=== PATIENT | male | born 1985 | race Caucasian/White ===

== ENCOUNTER 2017-05-18 17:04 | Emergency (ER) | payer BC ==
[~2017-05-18] VITALS: Ht 185.4 cm; Wt 119.8 kg
[2017-05-18 17:10] VITALS: TEMP 36.7; Ht 185.4 cm; Wt 119.8 kg
[2017-05-18] MEDS ORDERED: RABIES VACCINE (IMOVAX) HUMAN DIPL CELL 2.5 INTER.UNIT/ML SYR IM. ONE (17:30)
[2017-05-18] MEDS ORDERED: RABIES IMMUNE GLOBULIN (HUMAN) 150 INTER.UNIT/ML 2 ML VIAL IM. ONE (17:30)
[2017-05-18 19:05] VITALS: BP 120/81; PULSE 87; O2SAT 99
--- NOTE | 2017-05-18 19:22 | EMERGENCY ROOM VISIT NOTE ---
History First contact with patient: 17:16 Chief Complaint: OTHER COMPLAINT Stated Complaint: BAT ATTACK History of Present Illness The patient is a 31 year old male who presents to the Emergency Room for evaluation after the patient and spouse were awakened in the bedroom last night with their dog barking in the hallway leading to the bedroom. The bedroom door was open. They present to the emergency department for further discussion of need for the rabies prophylaxis series. Review of Systems 6 system review was performed and was negative except for pertinent positives and negatives as indicated in history of present illness Past Medical/Surgical History Medical Problems: (1) No significant past medical history Surgical Problems: (1) No history of previous surgery Family History Unremarkable Social History Smoking Status: Never Smoker Alcohol Use: none Marital Status: Housing Status: lives with family Occupation Status: employed Current/Historical Medications No Active Prescriptions or Reported Meds Physical Exam Vital Signs Date Time Temp Pulse Resp B/P (MAP) Pulse Ox O2 Delivery O2 Flow Rate FiO2 05/18/17 19:05 87 18 120/81 99 05/18/17 17:10 36.7 88 18 125/84 97 Physical Exam CONSTITUTIONAL: Healthy and well nourished. Alert and oriented X 3 with positive affect. HEENT: Normocephalic, atraumatic. Pupils equal, round and reactive. NECK: Full active range of motion without discomfort. INTEGUMENTARY: No rash or other significant dermatologic conditions noted. NEUROLOGIC: No focal neurologic deficits noted. Medical Decision & Procedures Medications Administered Medications (Trade) Dose Ordered Sig/Pati Route Start Time Stop Time Status Last Admin Dose Admin Rabies Vaccine Human Diploid Cell (Imovax Rabies) 2.5 interunit ONCE ONCE IM. 05/18/17 17:30 05/18/17 17:31 DC 05/18/17 18:14 2.5 INTERUNIT Rabies Immune Globulin (Imogam Rabies Inj) 2,400 interunit ONCE ONCE IM. 05/18/17 17:30 05/18/17 17:31 DC 05/18/17 18:15 2,400 INTERUNIT ED Course Patient history and physical exam were performed. Nurse's notes were reviewed. Vital signs were reviewed and were normal. Because the patient was awakened with a possibility of a bat in their room, I did explain that CDC guidelines recommend the postexposure prophylaxis series. The patient was in agreement. The patient was administered Imovax and HRIG 20 units per kilogram without any adverse reactions. The patient will return on days 3, 7 and 14 for subsequent immunizations, sooner with any other adverse reactions or concerns. The patient was happy with plan of care, and denied any pain at the time of discharge. Medical Decision Blood Pressure Screening Patient's blood pressure: Normal blood pressure Impression Primary Impression: Need for prophylactic vaccination against rabies Departure Information Prescriptions No Active Prescriptions or Reported Meds Referrals No Doctor, Assigned (PCP) Patient Instructions [facility]
== END 2017-05-18 19:07 | disposition home or self-care (01) ==
LOC: C.EDB 17:05 → C.EDD 19:07
DX: Z20.3 Contact with and (suspected) exposure to rabies (principal); Z23 Encounter for immunization

== ENCOUNTER 2017-05-21 19:26 | Emergency (ER) | payer BC ==
[~2017-05-21] VITALS: Ht 185.4 cm; Wt 120.2 kg
[2017-05-21 19:35] VITALS: TEMP 36.7; Ht 185.4 cm; Wt 120.2 kg
--- NOTE | 2017-05-21 19:44 | EMERGENCY ROOM VISIT NOTE ---
ED Visit Note First contact with patient: 19:38 CHIEF COMPLAINT: Need second rabies vaccine HISTORY OF PRESENT ILLNESS: This 31-year-old male presents the ER stating he needs his second rabies vaccine. The patient was initially seen here 3 days ago after there was a bat in their house. The patient denies any problems with her prior vaccine. REVIEW OF SYSTEMS: 6 system review was performed and was negative unless stated otherwise in history of present illness. PMH: The patient is healthy; there is no significant medical or surgical history. SOCIAL HISTORY: Patient lives with his significant other PHYSICAL EXAM: Vital Signs: Were reviewed Reviewed Nurse's notes. GENERAL: 31- year-old white male appears in no acute distress. MENTAL Status: Alert and oriented 3. SKIN: No visible bites noted. EMERGENCY DEPARTMENT COURSE: The patient was given Imovax. The patient was discharged home in stable condition. DIAGNOSIS: Post exposure rabies prophylaxis DISCHARGE INSTRUCTIONS: Return to the ER as previously directed for the remainder of the vaccine series. Current/Historical Medications No Active Prescriptions or Reported Meds Allergies Coded Allergies: No Known Allergies (Unverified , 05/18/17) Vital Signs Date Time Temp Pulse Resp B/P (MAP) Pulse Ox O2 Delivery O2 Flow Rate FiO2 05/21/17 19:35 36.7 77 16 129/72 97 Room Air Departure Information Prescriptions No Active Prescriptions or Reported Meds Referrals No Doctor, Assigned (PCP) Patient Instructions [facility]
[2017-05-21] MEDS ORDERED: RABIES VACCINE (IMOVAX) HUMAN DIPL CELL 2.5 INTER.UNIT/ML SYR IM. ONE (19:45)
[2017-05-21 20:13] VITALS: BP 119/91; PULSE 74; O2SAT 98
== END 2017-05-21 20:13 | disposition home or self-care (01) ==
LOC: C.EDB 19:27 → C.EDD 20:13
DX: Z23 Encounter for immunization (principal); Z20.3 Contact with and (suspected) exposure to rabies

== ENCOUNTER 2017-05-25 12:39 | Emergency (ER) | payer BC ==
[~2017-05-25] VITALS: Ht 185.4 cm; Wt 118.9 kg
[2017-05-25 16:14] VITALS: BP 116/76; PULSE 68; TEMP 36.4; O2SAT 97; Ht 185.4 cm; Wt 118.9 kg
[2017-05-25] MEDS ORDERED: RABIES VACCINE (IMOVAX) HUMAN DIPL CELL 2.5 INTER.UNIT/ML SYR IM. ONE (16:30)
--- NOTE | 2017-05-25 16:34 | EMERGENCY ROOM VISIT NOTE ---
ED Visit Note First contact with patient: 16:25 Chief complaint: Rabies exposure HPI: This 31-year-old white male presents for his next injection of Imovax. This is injection # 3. patient denies any rashes or problems from the last injection. No shortness of breath. Pain is 0/10. Exposure was a bat in his bedroom. Review of systems: Unchanged from previous exam. Surgical history: Unchanged from previous exam. Medical history: Unchanged from previous exam Current medications: Unchanged from previous exam Allergies: Unchanged from previous exam Social history: Unchanged from previous exam Vitals: Afebrile. Reviewed and filed in patient's chart General: Well-developed, well-nourished, young white male, in no acute distress. He is sitting in a chair. Alert and oriented. Skin:Warm and dry with good turgor. No rashes or lesions. No ecchymosis or erythema. The patient is not diaphoretic. No abrasions. Musculoskeletal: Full motion of the shoulder without discomfort. Impression: Rabies exposure. Plan: Patient was educated regarding today's findings. They were given Imovax 1 ML IM. Patient was monitored for 20 minutes. No adverse changes were noted. Patient was discharged with instructions to follow-up at the next scheduled injection next Saturday. Tylenol as needed for any discomfort. Benadryl as needed for any itch. Return to the ER for any signs of allergic reaction. Current/Historical Medications No Active Prescriptions or Reported Meds Allergies Coded Allergies: No Known Allergies (Unverified , 05/18/17) Vital Signs Date Time Temp Pulse Resp B/P (MAP) Pulse Ox O2 Delivery O2 Flow Rate FiO2 05/25/17 16:14 36.4 68 18 116/76 97 Room Air Departure Information Impression Primary Impression: Need for prophylactic vaccination against rabies Dispostion Home / Self-Care Prescriptions No Active Prescriptions or Reported Meds Forms BENADRYL USE, WORK / SCHOOL INSTRUCTIONS, HOME CARE DOCUMENTATION FORM, MOTRIN USE, TYLENOL USE , IMPORTANT VISIT INFORMATION Patient Instructions [facility] Additional Instructions Tylenol and Motrin every 6 hours as needed for mild discomfort Benadryl every 6 hours as needed for mild redness/itching Return to the ED for any other concerns Follow-up in one week for your fourth and final Imovax administration
== END 2017-05-25 16:45 | disposition home or self-care (01) ==
LOC: C.EDB 12:41 → C.EDD 16:45
DX: Z20.3 Contact with and (suspected) exposure to rabies (principal); Z23 Encounter for immunization

== ENCOUNTER 2017-06-01 16:47 | Emergency (ER) | payer BC ==
[~2017-06-01] VITALS: Ht 185.4 cm; Wt 83.7 kg
[2017-06-01 16:52] VITALS: BP 128/87; PULSE 73; TEMP 36.7; O2SAT 96; Ht 185.4 cm; Wt 83.7 kg
[2017-06-01] MEDS ORDERED: RABIES VACCINE (IMOVAX) HUMAN DIPL CELL 2.5 INTER.UNIT/ML SYR IM. ONE (17:00)
--- NOTE | 2017-06-01 17:01 | EMERGENCY ROOM VISIT NOTE ---
ED Visit Note First contact with patient: 16:55 CHIEF COMPLAINT: Rabies prophylaxis HISTORY OF PRESENT ILLNESS: This 31-year-old male patient presents to the emergency department ambulatory for their fourth rabies shot. The patient has not had any complications from the previous injections. They deny any other complaints. REVIEW OF SYSTEMS: A 6 system review of systems was completed with positives and pertinent negatives listed in the HPI. ALLERGIES: No known drug allergies MEDICATIONS: Unchanged from previous PMH: Unchanged from previous visit. PHYSICAL EXAM: Vital Signs: Reviewed Nurse's notes, vital signs stable. GENERAL : 31-year-old male, in no acute distress, well-developed, well-nourished. HEAD : Atraumatic, without temporal or scalp tenderness. EYES: PERRLA, EOMI, no discharge or injection. SKIN: Normal. NEUROLOGICAL: Alert and cooperative. Sensory and motor functions grossly intact. EMERGENCY DEPARTMENT COURSE: I examined the patient. The patient was given in the back 1ml IM. The patient was observed for 20 minutes with no reaction. The patient was discharged home in stable condition. DIAGNOSIS: Rabies prophylaxis DISCHARGE INSTRUCTIONS: Continue vaccination schedule as directed. Return for any complications. Current/Historical Medications No Active Prescriptions or Reported Meds Allergies Coded Allergies: No Known Allergies (Unverified , 05/18/17) Vital Signs Date Time Temp Pulse Resp B/P (MAP) Pulse Ox O2 Delivery O2 Flow Rate FiO2 06/01/17 16:52 36.7 73 17 128/87 96 Room Air Medications Administered Medications (Trade) Dose Ordered Sig/Pati Route Start Time Stop Time Status Last Admin Dose Admin Rabies Vaccine Human Diploid Cell (Imovax Rabies) 2.5 interunit ONCE ONCE IM. 06/01/17 17:00 06/01/17 17:01 DC 06/01/17 17:22 2.5 INTERUNIT Departure Information Impression Primary Impression: Need for post exposure prophylaxis for rabies Dispostion Home / Self-Care Condition GOOD Prescriptions No Active Prescriptions or Reported Meds Referrals No Doctor, Assigned (PCP) Patient Instructions [facility] Additional Instructions Return for complications
== END 2017-06-01 17:38 | disposition home or self-care (01) ==
LOC: C.EDB 16:48 → C.EDD 17:38
DX: Z23 Encounter for immunization (principal); Z20.3 Contact with and (suspected) exposure to rabies